=== PATIENT | male | born 1955 | race Caucasian/White ===

== ENCOUNTER 2018-11-20 06:23 | Day surgery (SDC) | payer BC ==
--- NOTE | 2018-11-13 09:22 | RAD REPORT ---
EXAM DESCRIPTION: RAD - Chest Pa And Lat (2 Views) - 11/13/2018 9:12 am CLINICAL HISTORY: preop Chest pain. COMPARISON: No comparisons FINDINGS: The lungs are clear. The heart is upper limit of normal in size. No displaced fractures. R ight humeral prosthesis. IMPRESSION: No acute or concerning finding suspected.
[2018-11-13 10:14] LABS: Absolute Lymphocytes (CBC) 1.4 K/uL (0.7-4.9); Absolute Monocytes 0.6 K/uL (0.1-1.3); Absolute Neutrophil 4.9 K/uL (1.8-8.0); Basophils % 0.3 % (0-1.3); Eosinophils % 2.3 % (0-4.4); Hematocrit 49.2 % (39.6-49.0); MPV 9.2 fL (7.6-11.3); Monocytes % 8.8 % (3.3-12.3); RBC Red Blood Cell Count 5.95 M/uL (4.33-5.43)
[2018-11-13 10:36] LABS: Potassium 4.1 mmol/L (3.5-5.1)
--- NOTE | 2018-11-13 10:44 | EKG ---
Test Date: 2018-11-13 Test Time: 08:57:44 Pulpit Operator: HENRIQUE MEASUREMENT RESULTS: Intervals: Rate: 71 MS: 174 QRSD: 96 QT: 400 QTc: 434 [place]: P: 34 MS: 174 QRS: 46 T: 42 INTERPRETIVE STATEMENTS: Normal sinus rhythm Normal ECG No previous ECG available for comparison Electronically Signed On 11-13-18 10:43:20 CDT by Jaxon Mcrae
--- NOTE | 2018-11-19 16:57 | PREOPHP ---
Date of Admission: 11/13/2018 History Of Present Illness: This patient presented to my office with a chief complaint of a soft tis rj mass on the plantar aspect of the left hallux that was previously excised approximately a year an d a half ago by myself and has recurred. The patient states pain is sharp in quality, moderate in se verity, it has been present regrown for a few months. 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 Current Medical History: Includes arthritis, hypertension, and herpes. Surgical History: Includes surgery to the eye, stomach hernia, tonsillectomy, soft tissue mass left hallux as mentioned prior, and right shoulder. Medications: Include losartan 100 mg, hydrochlorothiazide 25 mg, amlodipine 10 mg, and levothyroxine 112 mcg. Allergies: NKDA. Social History: The patient denies smoking, recreational alcohol use. No IV drug use. Family History: History of cancer in his father. Physical Examination: Vital Signs: Weight 255 pounds, height 6 feet 1 inch. General Appearance: The patient is healthy, well developed, well nourished, well oriented x3. Cardiovascular: Evaluation reveals dorsalis pedis and posterior tibial pulses to be 4/4 bilaterally. Capillary refill time is 1 second. Temperature gradient is within the limits. No varicosities, si gns of DVT noted. Musculoskeletal: Evaluation reveals a flexible pes planus foot type bilaterally with increase in the subtalar joint in varus and forefoot superonasal bilaterally. The digits of both feet noted to be i n normal alignment. Muscle testing of the lower extremity is within normal limits, symmetrical bilat eral and knee assessment is within normal limits. Soft tissue mass present on the plantar aspect of the left hallux. It is not freely movable under the skin and measures approximately 3 cm x 3 cm with minor skin irritation due to the growth. Skin: Evaluation reveals no rash, ulcer, tumor, or contracture other than the irritation to the skin from the soft tissue mass into the dermal tissue. Neurologic: Evaluation reveals deep tendon reflexes of patella and Achilles to be 5/5 bilaterally. Vibratory and sharp dull sensation within normal limits with some decrease in the area of the soft ti ssue eminence. Imaging: X-ray evaluation revealed no abnormalities in the bones of the proximal phalanx on the left big toe. MRI studies revealed a soft tissue mass consistent with a fibroma of tendon sheath with no involvement of the bone or the tendon. Diagnosis: Benign neoplasm soft tissue mass, plantar aspect left big toe. Plan: Due to the recurrence of the growth, the treatment plan for surgery is as follows. The patien t will need excision of the soft tissue mass and based on prior excision, the soft tissue mass was in to the dermal layer of the skin. This was thinned as best as possible causing some ulceration postop eratively and thinning of the tissue, which required extended time to heal. It is felt that this is the cause of the recurrence as it was not gotten out of the dermal layer of the skin sufficiently, as 1 potential reason for recurrence. The plan for this procedure was excision of the soft tissue mass after consultation with Dr. Ronald Allison, general surgeon. A full-thickness skin graft will be pl aced by Dr. Allison, postoperatively approximately 2 weeks after to allow a granulation bed to perfo rm. During the surgery the skin would be excised that is involved in the soft tissue growths, so as to eliminate the chance of recurrence. The patient will need to remain nonweightbearing with the use of a knee roller. The patient understands risks, benefits, alternatives of the above-mentioned proc edure including, but not limited to the risk of pain, swelling, numbness, stiffness, infection, recur rence of the growth, nonhealing of skin due to the excision and due to the placement of skin graft in either case. The patient has been seen by Dr. Allison, who has agreed to follow up with full-thick ness skin graft as mentioned approximately 1-2 weeks after surgery. The wound would be left open wit h obviously wet-to-dry dressings for protection, but a damaged skin will be excised. The patient is scheduled for surgery at [facility] on November 20, 2018. Preoperative labs have been performed, medical H and P will be completed by Anesthesia. CATHY/BELLE Voice ID: [id number]
[2018-11-20] MEDS ORDERED: CEFAZOLIN/SWI 1gm 1 GM/10 ML SYR ONE ×2 (06:37→10:44)
[2018-11-20] MEDS ORDERED: Ringers Lactate 1,000 ML IV ONE (06:37)
[2018-11-20] MEDS ORDERED: BUPIVACAINE 0.5% PF 10 ML VIAL ONE (07:21)
[2018-11-20] MEDS ORDERED: FENTANYL CITR 100 MCG/2 ML ONE (07:22)
[2018-11-20] MEDS ORDERED: MIDAZOLAM HCL 2 MG/2 ML INJ ONE ×2 (07:22→07:56)
[2018-11-20] MEDS ORDERED: LIDOCAINE 1% MPF 5 ML VIAL ONE (07:22)
[2018-11-20] MEDS ORDERED: PROPOFOL 200 MG/20 ML VIAL IV ONE (07:22)
--- NOTE | 2018-11-20 19:01 | OP ---
Date of Procedure: 11/20/2018 Surgeon: Yoan Resendiz DPM Preoperative Diagnosis: Soft tissue mass, plantar aspect, left big toe. Postoperative Diagnosis: Fibroma of tendon sheath and skin, left big toe. Anesthesia: Via local infiltration. Procedure In Detail: The patient was brought into the operating room, placed on the operating table in supine position. Once adequate IV sedation was obtained, the patient was injected with a total of 7 cc of 0.5% Marcaine plain. The patient was prepped and draped in usual sterile manner and the lef t extremity was elevated to 60 degrees for a period of 3 minutes to exsanguinate the blood supply. P neumatic ankle tourniquet was elevated to 250 mmHg. Attention was then directed to the plantar aspec t of the left hallux. This was a recurrence of this fibrous growth removed a year and half ago, and it was anticipated that the causative factor was remaining fibroma in the skin. Incision was planned as a circular excision of skin and soft tissue mass. The area of the soft tissue mass was marked wi th a marking pen with 2 mm of clearance. The incision was made on the dorsal medial aspect and fely ed laterally around the marked areas back toward the medial aspect of the toe, but not completed. Th e incision was deepened. The fibrous mass was encountered and freed plantarly with Metzenbaum scisso rs, easily from the deeper tissue visualizing the flexor digitorum longus tendon intact and noninvolv ed. Bone of the proximal and distal phalanx was also identified with its capsule covering noninvolve d. The soft tissue mass was freed deeply. It was an intertwined into the dermal tissue and there wa s no way to save skin without compromising skin or guaranteeing recurrence. The incision was complet ed circularly excising the skin and the soft tissue mass in 1 mass. The area was inspected for any r emaining fibroma and none was seen. The area was flushed with copious amounts of sterile saline. An y bleeders were bovied. The area was flushed with copious amounts of sterile saline, dressed with Ad aptic first, then a tender wet dressing approximately 4 cm in diameter with saline impregnated and dr y sterile gauze and Kerlix and Coban. Pneumatic ankle tourniquet was deflated and capillary return w as seen to be instantaneous to all digits including the hallux. The patient will be follow my office for postoperative care. Postop instructions were given in the written form as well as emergency arcelia ne number. Dr. Ronald Allison will be following the patient up in addition for evaluation for timely placement of full-thickness skin graft. WILLIAM Voice ID: [id number] Report ID: [id number]
--- NOTE | 2018-11-20 19:03 | DS ---
Date of Discharge: 11/20/2018 Date Of Surgery: 11/20/2018. Surgeon: Yoan Resendiz DPM. Preoperative Diagnosis: Fibroma of tendon sheath, left hallux plantarly. Postoperative Diagnosis: Fibroma of tendon sheath, left hallux plantarly. Procedure: Excision of soft tissue mass and skin leaving open the wound for followup full-thickness graft. Hospital Course: The patient tolerated the procedure and anesthesia well. May be discharged to home with followup appointment in 5 days. The patient will leave the bandage intact. May resume normal diet. The patient's emergency phone number as well as postop instructions in the written form. CATHY/BELLE Voice ID: [id number] Report ID: [id number]
== END 2018-11-20 09:00 | disposition home or self-care (01) ==
LOC: OR 06:23
PROVIDERS: ATTEND Podiatrist
PROC: 0JBR0ZX Excision of Left Foot Subcutaneous Tissue and Fascia, Open Approach, Diagnostic (ICD-10-PCS; principal; 2018-11-20 07:30)
DX: D21.22 Benign neoplasm of connective and other soft tissue of left lower limb, including hip (principal); E03.9 Hypothyroidism, unspecified; I10 Essential (primary) hypertension; M19.90 Unspecified osteoarthritis, unspecified site; Z79.899 Other long term (current) drug therapy
CPT/HCPCS: 36415; 71046; 80048; 85025; 88305; 93005; J0690; J2250; J2704; J3010

== ENCOUNTER 2018-12-01 08:17 | Day surgery (SDC) | payer BC ==
[2018-11-27 14:13] LABS: Absolute Lymphocytes (CBC) 1.8 K/uL (0.7-4.9); Absolute Monocytes 0.6 K/uL (0.1-1.3); Absolute Neutrophil 5.2 K/uL (1.8-8.0); Basophils % 0.4 % (0-1.3); Eosinophils % 2.2 % (0-4.4); Hematocrit 47.5 % (39.6-49.0); Lymphocytes % 22.8 % (15.3-44.8); MPV 8.9 fL (7.6-11.3); Monocytes % 8.2 % (3.3-12.3); RBC Red Blood Cell Count 5.91 M/uL (4.33-5.43)
--- OUTSIDE RECORDS SUMMARY | 2018-12-01 08:26 | XMS REPORT | Clinical Summary ---
:1955 Author Organization [facility] Address [address] [place] [id number] Care Team Providers Name Role Phone Aparna Martins MD Primary Care Provider Allergies No Known Allergies Medications Medication Sig Dispensed Refills Start Date End Date Status meloxicam (MOBIC) TAKE 1 90 tablet 1 11/13/2017 06/13/2018 Discontinued 15 mg tablet TABLET(15 MG) BY MOUTH DAILY meloxicam (MOBIC) TAKE 1 90 tablet 0 06/13/2018 09/11/2018 15 mg tablet TABLET(15 MG) BY MOUTH DAILY Active Problems Not on file Encounters Date Type Specialty Care Team Description 09/09/2018 Refill Orthopedic Surgery Parth Edmonds MD 06/13/2018 Refill Orthopedic Surgery Parth Edmonds MD after 11/30/2017 Social History Tobacco Use Types Packs/Day Years Used Date Never Smoker Smokeless Tobacco: Never Used Sex Assigned at Date Recorded Not on file Job Start Date Occupation Industry Not on file Not on file Not on file Travel History Travel Start Travel End No recent travel history available. Last Filed Vital Signs Not on file Plan of Treatment Health Maintenance Due Date Last Done Comments COLON CANCER SCREENING 2007 SHINGLES VACCINES (#1) 2007 INFLUENZA VACCINE 03/26/2019 Results Not on fileafter 11/30/2017 Insurance Payer Benefit Plan / Group Subscriber ID Type Phone Address BCBS BCBS CHOICE PPO/[employer]ERAL EMPL PPO xxxxxxxxxxxx PPO Advance Directives Patient has advance care planning documents on file. For more information, please contact:Joon [id number] [facility] [place] [address]
[2018-12-01] MEDS ORDERED: Ringers Lactate 1,000 ML IV ONE (08:53)
[2018-12-01] MEDS ORDERED: CEFAZOLIN/SWI 1gm 1 GM/10 ML SYR ONE (08:54)
[2018-12-01] MEDS ORDERED: BUPIVACAINE 0.5% PF 10 ML VIAL ONE ×2 (09:15)
[2018-12-01] MEDS ORDERED: PROPOFOL 200 MG/20 ML VIAL IV ONE (09:17)
[2018-12-01] MEDS ORDERED: MIDAZOLAM HCL 2 MG/2 ML INJ ONE (09:18)
[2018-12-01] MEDS ORDERED: FENTANYL CITR 100 MCG/2 ML ONE ×2 (09:18→10:45)
[2018-12-01] MEDS ORDERED: ONDANSETRON 4 MG/2 ML VIAL ONE (09:18)
[2018-12-01] MEDS ORDERED: LIDOCAINE 2% MPF 5 ML VIAL ONE (09:18)
[2018-12-01] MEDS ORDERED: ROCURONIUM 50 MG/5 ML VIAL IV ONE (10:03)
[2018-12-01] MEDS ORDERED: Phenylephrine HCl 10 MG/ML 1 ML VIAL ONE (10:26)
[2018-12-01] MEDS ORDERED: EPHEDRINE SULF 50 MG/10 ML SYR ONE (11:06)
--- NOTE | 2018-12-01 11:38 | P.BOP ---
Preoperative diagnosis: non healing wound down to tendon left halux, neoplasia left hallux Postoperative diagnosis: same Primary procedure: Full thickness skin graft left hallux 5.5 x 4 cm Mate Ship: Harmony Tapia Estimated blood loss: <10cc Specimen: none Findings: see dictation, donor site skin from back Anesthesia: General Complications: None Transferred to: Recovery Room Condition: Good
[2018-12-01] MEDS: HYDROMORPHONE HCL 1 MG/ML INJ ONE ×2 (11:44→11:50)
[2018-12-01] MEDS ORDERED: HYDROCODONE/APAP 7.5/325 MG TAB ONE (12:25)
[2018-12-01 12:34] VITALS: TEMP 97.1
[2018-12-01 13:21] VITALS: BP 126/66; O2SAT 90
--- NOTE | 2018-12-08 23:36 | DS ---
Date of Discharge: 12/01/2018 Diagnoses: Nonhealing wound down to tendon of left hallux, neoplasia of the left hallux. Procedures: Full thickness skin graft, left hallux 5.5 x 4 cm. Disposition: Home. Activity: As tolerated. No heavy lifting. The patient understand offloading of the foot of concern. The donor site, he may remove dressings in 48 hours. May shower, but always covering the recipient of the full size skin graft not to get wet, not to change the dressings on as needed and offloading. Medications: See orders. HM/MODL Voice ID: [id number] Report ID: [id number]
--- NOTE | 2018-12-08 23:51 | OP ---
Date of Procedure: 12/01/2018 Surgeon: Ronald Allison MD End Packer: SHELLEY Martinez. Preoperative Diagnoses: Nonhealing wound down to tendon of left hallux, neoplasia of the left hallux , status post removal, nonhealing wound. Postoperative Diagnoses: Nonhealing wound down to tendon of left hallux, neoplasia of the left hallu x, status post removal, nonhealing wound. Procedure: Full thickness skin graft, left hallux, 5.5 x 4 cm with the donor harvest site coming fro m the back, torso. Estimated Blood Loss: Less than 10 cc. Specimen: None. Findings: The patient has a nonhealing wound of the heel, previously the tumor was removed from the area by the financial reporting manager leaving the tendon exposed. He has been receiving wound care to the point now that he has the granulation tissue present healthy, so we took the advantage of this to the skin gra ft. The primary doctor and financial reporting manager request full thickness skin graft. This is on the plantar lavonne face of the toe. We need good quality of skin, so we decided we are going to take him from his back as personal preference from the thigh or the back, the patient prefer the back. The benefits, altern atives, and risk of a full-thickness skin graft with harvesting from the back of the torso fully expl ained to the patient, which include, but are not limited to infection, bleeding, damage to adjacent s tructures, anesthesia complication, failure of the graft, nonhealing wound on the donor site and on t he hallux site, contractures, [place], even . He also understands this may not relieve any symptoms. He might need more than one surgical intervention. After decided the location of the donor site, rosie grant also understands he may have scar in that area. He signed a consent. Description Of Procedure: The patient was brought to the operating room and placed in supine positio n. Anesthesia was induced without complication. The patient was placed in lateral decubitus positio n with proper protection. Time-out was called. The back and the foot were prepped and draped in the usual sterile fashion. Local anesthesia was applied. We proceeded to harvest the graft from the ck. We created a template of the wound on the toe area, outlined in the donor site with a surgical m arjulissa and after applying local anesthetic, we proceeded to harvest the graft. The graft was trimmed from any underlying adipose tissue. The graft was placed in the toe, secured in place with sutures a nd also tung. The donor site was repaired by layered closure. We have to elevate flaps circumfer entially to be able to advance the skin medially. The layers well taken care of with 3-0 Chromic and then the skin was approximated. The area was covered with sterile dressings. The skin graft was co cornelius with Actisorb dressings with a Solange around the area and then it was immobilized. The patient already have immobilization of the area device since the financial reporting manager put him on that area to maximize formation of granulation tissue, so he was going to go back to the device which is using the 4, which is an off-loading device. The patient tolerated the procedure well. The patient was sent [facility] in stable condition. The patient advised the importance of no smoking. LYNN/BELLE Voice ID: [id number] Report ID: [id number]
== END 2018-12-01 13:15 | disposition home or self-care (01) ==
LOC: OR 08:17
PROVIDERS: ATTEND Surgery
PROC: 0HB6XZZ Excision of Back Skin, External Approach (ICD-10-PCS; 2018-12-01)
PROC: 0HRNX73 Replacement of Left Foot Skin with Autologous Tissue Substitute, Full Thickness, External Approach (ICD-10-PCS; principal; 2018-12-01 10:30)
DX: S91.102A Unspecified open wound of left great toe without damage to nail, initial encounter (principal); I10 Essential (primary) hypertension; Z85.828 Personal history of other malignant neoplasm of skin; Z80.8 Family history of malignant neoplasm of other organs or systems
CPT/HCPCS: 36415; 80048; 85025; J0690; J1170; J2250; J2370; J2405; J2704; J3010